=== PATIENT | male | born 1960 | race Caucasian/White ===

== ENCOUNTER 2020-07-12 10:50 | Day surgery (SDC) | payer OTHER ==
[~2020-07-12] VITALS: Ht 172.7 cm; Wt 102.3 kg
--- NOTE | ~2020-07-12 | HEMODYNAMI ---
PATIENT:HUSSEIN FRAIRE MEDICAL RECORD: [id number] : 56 LOCATION:[facility] ADMISSION DATE: 07/12/20 Generatedon:114:26 Patient name: HUSSEIN FRAIRE Patient #: [id number] SSN: [id number] : 1960 Date of study: 07/12/2020 Page: Of Hemodynamic Procedure Report Patient Data Patient Demographics Procedure consent was obtained First Name: HUSSEIN Gender: Male Last Name: JUNO : 1960 Patient #: [id number] Age: 59 year(s) Race: Unknown SSN: [id number] Additional ID: [id number] Contact details [address]: [address] [place] [address] State: [place] City: [place] Zip code: [address] Past Medical History Allergies: No known allergies Admission Admission Data Admission Date: 07/12/2020 Admission Time: 10:50 Arrival Date: 07/12/2020 Arrival Time: 0:00 Admit Source: Other Insurance Payor: Medicare [facility] #: [id number] Height (in.): 67.72 BSA: 2.14 (m2) Height (cm.): 172 BMI: 34.48 (kg/m2) Weight (lbs.): 224.87 Weight (kg.): 102 Lab Results Lab Result Date: 07/12/2020 Lab Result Time: 0:00 Biochemistry Name Units Result Min Max Troponin I ng/ml 72 --(----)-* 0 0.06 Procedure Procedure Types Cath Procedure Diagnostic Procedure LHC LHC w/Coronaries w/Grafts Sedation Charges Moderate Sedation 10-24 minutes Moderate Sedation 40-54 minutes PCI Procedure Coronary Stent Coronary Stent Initial Hemochron ACT Test Procedure Description Procedure Date Procedure Date: 07/12/2020 Procedure Start Time: 13:40 Procedure End Time: 14:23 Procedure Staff Name Function Elton Sotelo MD Performing Physician Yaneth Tobin RT Monitor Phillip Keane RN Nurse Kimberly Eric RT Scrub Indication Abnormal stress perfusion study Procedure Data Cath Procedure Fluoroscopy Diagnostic fluoroscopy Total fluoroscopy Time: time: 12.7 min 12.7 min Diagnostic fluoroscopy Total fluoroscopy dose: dose: 1862 mGy 1862 mGy Contrast Material Contrast Material Type Amount (ml) Isovue 300 202 Entry Location Entry Primary Successful Side Size Upsize Upsize Entry Closure Succes sful Closure Location (Fr) 1 (Fr) 2 (Fr) Remarks Device Remarks Femoral Right 5 Fr 6 Fr artery Short Estimated blood loss: 10 ml Diagnostic catheters Device Type Used For End Catheter Placement MULTIPACK JL 4.0 5Fr Procedure catheter DIAGNOSTIC AR MOD 5Fr Procedure Catheter ([id number]) DIAGNOSTIC AR2 MOD 5 Fr Procedure catheter ([id number]) DIAGNOSTIC IM 5Fr catheter (913300T) DIAGNOSTIC IMT 5Fr Procedure Catheter ([id number]) MULTIPACK Pigtail 5 Fr Ventriculography catheter Procedure Complications No complications Procedure Medications Medication Administration Route Dosage 0.9% NaCl I.V. 100 ml/hr Oxygen etCO2 Nasal cannula 2 l/min Heparin Flush Bag added to field 2 bags (1000units/500ml NS) Lidocaine 2% added to field 20 Versed I.V. 2 mg Fentanyl I.V. 100 mcg Versed I.V. 2 mg Versed I.V. 1 mg Heparin Bolus I.V. 21137 units Versed I.V. 1 mg Nitroglycerin IC/IA I.C. 100 mcg Plavix P.O. 600 mg Hemodynamics Rest BSA: 2.14 (m2) O2 Consumption: Estimated: 240.9 (ml/min) O2 Consumption indexed: Estimated:112.57 (ml/min/m) Heart Rate: 57 (bpm) Pressure Samples Time Site Value (mmHg) Purpose Heart Use Rate(bpm) 13:56 LV 126/-12,11 Snapshot 64 13:57 AO 112/56(81) Pullback 67 13:57 LV 133/-7,7 Pullback 67 Gradients Valve Time Site 1 Site 2 Mean SEP/DFP Peak To Heart Use (mmHg) (sec/min) Peak Rate (mmHg) (bpm) Aortic 13:57 LV AO 17 19 21 67 133/-7,7 112/56(81) Calculations Valve P-P Mean Valve Index Valve Source Name Gradient Area Flow (cm2) Aortic 21 17 21 17 Snapshots Pre Cath Intra NCS Post Cath Vital Signs Time Heart Resp SPO2 etCO2 NIBP (mmHg) Rhythm Pain Sedation Rate (ipm) (%) (mmHg) Status Level (bpm) 13:17:53 54 23 100 33.9 169/87(145) NSR 0 (11) 10(A) , No pain 13:22:18 54 12 100 31.6 163/80(143) NSR 0 (11) 10(A) , No pain 13:26:42 53 19 99 33.8 155/82(123) NSR 0 (11) 10(A) , No pain 13:31:02 54 21 99 31.6 148/82(127) NSR 0 (11) 10(A) , No pain 13:35:20 52 18 98 34.6 154/82(123) NSR 0 (11) 10(A) , No pain 13:40:25 55 18 98 36.1 139/80(111) NSR 0 (11) 10(A) , No pain 13:44:39 64 21 96 12.7 141/84(111) NSR 0 (11) 10(A) , No pain 13:48:57 59 17 98 30.8 141/74(116) NSR 0 (11) 10(A) , No pain 13:53:15 62 18 97 17.3 152/78(112) NSR 0 (11) 10(A) , No pain 13:57:39 58 15 98 32.3 133/74(108) NSR 0 (11) 10(A) , No pain 14:01:55 62 17 98 27 127/73(99) NSR 0 (11) 10(A) , No pain 14:06:11 64 15 98 30.1 128/66(97) NSR 0 (11) 10(A) , No pain 14:10:25 64 20 97 29.3 134/78(113) NSR 0 (11) 10(A) , No pain 14:14:39 63 17 97 21.8 149/83(116) NSR 0 (11) 10(A) , No pain 14:18:57 64 14 98 25.5 131/78(111) NSR 0 (11) 10(A) , No pain 14:23:11 59 11 98 26.3 136/79(112) NSR 0 (11) 10(A) , No pain Medications Time Medication Route Dose Verified Delivered Reason Note s Effectiveness by by 13:17:04 0.9% NaCl I.V. 100 Phillip Phillip for low 02 sats ml/hr Diya Keane RN RN 13:17:18 Oxygen etCO2 2 Phillip Phillip for low 02 sats Nasal l/min Diya Keane cannula RN RN 13:17:34 Heparin Flush added 2 bags Phillip Phillip used for Bag to Diya Keane procedure (1000units/500ml field RN RN NS) 13:17:45 Lidocaine 2% added 20ml Phillip Phillip for local to vial Diya Keane anesthetic field RN RN 13:39:55 Versed I.V. 2 mg Phillip Phillip for sedation Diya Keane RN RN 13:40:04 Fentanyl I.V. 100 Phillip Phillip for sedation mcg Diya Keane RN RN 13:41:26 Versed I.V. 2 mg Phillip Phillip for sedation Diya Keane RN RN 13:56:43 Versed I.V. 1 mg Phillip Phillip for sedation Diya Keane RN RN 14:02:26 Heparin Bolus I.V. 10,000 Phillip Phililp for units Diya Keane anticoagulation RN RN 14:10:18 Versed I.V. 1 mg Phillip Phillip for sedation Diya Keane RN RN 14:15:53 Nitroglycerin I.C. 100 Phillip Elton for IC/IA mcg Diya Sotelo MD vasodilation RN 14:22:52 Plavix P.O. 600 mg Phillip Phillip for Diya Keane antiplatelet RN RN therapy Procedure Log Time Note 13:06:10 Arrival Date: 07/12/2020 12:00:00 AM 13:06:27 Admit Source: Other 13:06:30 Insurance Payor : Medicare 13:07:46 Patient Height : 67.72 inches 13:07:49 Patient Weight : 224.87 lbs 13:08:02 Lab Result : Troponin T 72 ng/ml 13:08:08 Procedure type changed to Cath procedure, Diagnostic procedure, LHC, LHC w/Coronaries w/Grafts, Sedation Charges, Moderate Sedation 10-24 minutes, Moderate Sedation 40-54 minutes, PCI procedure, Coronary Stent, Coronary Stent Initial, Hemochron ACT Test 13:08:10 Diagnostic Cath Status : Elective 13:08:39 Indication : Abnormal stress perfusion study 13:08:48 Procedure Status Elective Heart Cath (OP). 13:08:51 Phillip Keane RN sent for patient. Start room use. 13:08:52 Time tracking: Regular hours (M-F 7:00 - 5:00) 13:08:57 Plan of Care:Hemodynamics will remain stable., Cardiac rhythm will remain stable., Comfort level will be maintained., Respiratory function will remain adequate., Patient/ family verbilizes understanding of procedure., Procedure tolerated without complication., Recovers from procedure without complications.. 13:10:46 Patient received from Pre/Post Procedure Room to CCL 2 Alert and oriented. Tansferred to table in Supine position. 13:11:03 Signed procedure consent form obtained from patient. 13:11:04 Warm blankets applied, and suzanne hugger turned on for patient comfort. 13:11:05 Correct patient and procedure confirmed by team. 13:11:07 ECG and BP/O2 sat monitors applied to patient. 13:11:31 H&P Date Dictated: 07/12/2020 Within 30 days and on chart.. 13:11:35 Pre-procedure instructions explained to patient. 13:11:39 Family unavailable. 13:11:41 Patient NPO since Midnight. 13:11:48 Patient allergic to No known allergies 13:11:52 Is the patient allergic to Iodine/contrast media? No. 13:11:53 Was the patient premedicated? Yes 13:13:06 Lab results completed and on chart. 13:13:23 Stress Test: yes; abnormal lat/infer 13:16:37 Baseline sample Acquired. 13:16:37 Vital chart was started 13:16:43 Rhythm: sinus rhythm 13:16:46 Full Disclosure recording started 13:16:53 Is patient on blood thinner?No 13:16:55 Patient diabetic? No. 13:16:59 Snore? Yes 13:17:00 Sleep apnea? Yes 13:17:04 0.9% NaCl 100 ml/hr I.V. was administered by Phillip Keane RN; for low 02 sats; Verbal order read back and verified. 13:17:08 Dentures? No ? 13:17:14 Patient pain scale 0/10 ?. 13:17:18 Oxygen 2 l/min etCO2 Nasal cannula was administered by Phillip Keane RN; for low 02 sats; Verbal order read back and verified. 13:17:26 IV patent on arrival in left forearm with 0.9% NaCl at [facility]. 13:17:29 Alarms reviewed by R. N. 13:17:30 Sharps counted by scrub and verified by R.N. 13:17:31 Physician paged 13:17:34 Heparin Flush Bag (1000units/500ml NS) 2 bags added to field was administered by Phillip Keane RN; used for procedure; Verbal order read back and verified. 13:17:45 Lidocaine 2% 20ml vial added to field was administered by Phillip Keane RN; for local anesthetic; Verbal order read back and verified. 13:20:57 Use device set Femoral Dx 13:20:59 ACIST Syringe (18958) opened to sterile field. 13:21:00 Bag Decanter (2002S) opened to sterile field. 13:21:00 Medline Cath Pack ([id number]) opened to sterile field. 13:21:02 ACIST Hand Control (13535) opened to sterile field. 13:21:02 ACIST Manifold (90725) opened to sterile field. 13:21:03 DIAGNOSTIC Multipack 5Fr catheter set (DM7625) opened to sterile field. 13:21:04 Tegaderm 4 x 4 (1626W) opened to sterile field. 13:21:06 SHEATH 5FR Pocola (AZO402) opened to sterile field. 13:21:07 EMERALD Guide Wire (909-900) opened to sterile field. 13:27:56 Right groin area was prepped with chlora-prep and draped in sterile fashion 13:35:11 Zero performed for pressure channel P1 13:39:01 Physician arrived 13:39:01 --------ALL STOP TIME OUT------ 13:39:02 Final Timeout: patient, procedure, and site verified with staff and physician. All members of the team are in agreement. 13:39:04 Right groin site verified by team. 13:39:09 Fire Safety Assessment: A--An alcohol-based skin anteseptic being used preoperatively., C--Open oxygen or nitrous oxide is being used., D--An ESU, laser, or fiber-optic light is being used. 13:39:15 Physical assessment completed. ASA score P 3 - A patient with severe systemic disease as per Elton Sotelo MD. 13:39:21 2) 60-89 Mildly reduced kidney function, and other findings (as for stage 1) point to kidney disease. 13:39:25 Maximum allowable contrast dose (3.7 X eGFR X 0.75)199 ml. 13:39:30 Sedation plan: IV Moderate Sedation Medication:Versed, Fentanyl 13:39:42 Procedure started. 13:39:55 Versed 2 mg I.V. was administered by Phillip Keane RN; for sedation; Verbal order read back and verified. 13:40:04 Fentanyl 100 mcg I.V. was administered by Phillip Keane RN; for sedation; Verbal order read back and verified. 13:40:23 Local anesthetic to right femoral artery with Lidocaine 2% by Elton Sotelo MD.INITIAL ACCESS ONLY 13:40:32 A 5 Fr sheath was inserted into the Right Femoral artery 13:41:26 Versed 2 mg I.V. was administered by Phillip Keane RN; for sedation; Verbal order read back and verified. 13:42:04 A MULTIPACK JL 4.0 5Fr catheter was advanced over the wire and used for Procedure. 13:42:06 LCA angiography performed. 13:43:09 Catheter removed. 13:43:16 A DIAGNOSTIC AR MOD 5Fr Catheter ([id number]) was advanced over the wire and used for Procedure. 13:44:40 RCA angiography performed. 13:46:40 Catheter removed. 13:46:57 A DIAGNOSTIC AR2 MOD 5 Fr catheter (504150E) was advanced over the wire and used for Procedure. 13:47:05 SVG to RCA angiography performed. 13:47:40 SVG to Diag angiography performed. 13:49:43 Catheter removed. 13:53:24 A DIAGNOSTIC IM 5Fr catheter (141782S) was advanced over the wire and used for .unable to cannulate 13:53:26 Catheter removed. 13:53:41 A DIAGNOSTIC IMT 5Fr Catheter ([id number]) was advanced over the wire and used for Procedure. 13:54:19 DONATO angiography performed. 13:54:48 Catheter removed. 13:55:47 A MULTIPACK Pigtail 5 Fr catheter was advanced over the wire and used for Ventriculography. 13:56:12 LV gram done using WRIGHT 13:56:43 Versed 1 mg I.V. was administered by Phillip Keane RN; for sedation; Verbal order read back and verified. 13:56:58 EF : 60 % 13:57:24 Catheter removed. 13:58:17 Sheath upsized to a 6 Fr Short. 13:58:59 SHEATH 6FR Pocola (TFO341) opened to sterile field. 13:58:59 INFLATOR Merit BasixCompak (XD2639) opened to sterile field. 13:59:02 GUIDE 6FR EBU 3.5 catheter ([id number]) opened to sterile field. 13:59:37 Proceeding to intervention. 14:00:44 TUBING High Pressure Extension Tubing (Deepak) (OV3010X) opened to sterile field. 14:01:39 Asahi Minamo 300cm wire opened to sterile field. 14:01:51 6 Fr ebu3.5 guide catheter was inserted over the wire 14:02:26 Heparin Bolus 10,000 units I.V. was administered by Phillip Keane RN; for anticoagulation; Verbal order read back and verified. 14:02:38 virginie wire advanced. 14:05:29 Inflate balloon Inflation number: 1 A EMERGE OTW 2.5 x 15 balloon ([id number]) was prepped and advanced across the Prox CX , then inflated to 12 KOTA for 0:31 (min:sec) . 14:08:01 Inflation number: 2 The EMERGE OTW 2.5 x 15 balloon ([id number]) was reinflated across the Prox CX , to 8 KOTA for 0:24 (min:sec) . 14:09:04 Balloon removed over the wire. 14:10:18 Versed 1 mg I.V. was administered by Phillip Keane RN; for sedation; Verbal order read back and verified. 14:12:39 Place stent Inflation Number: 1 A LETICIA OTW 2.5 x 18 stent ([id number]) was prepped and advanced across the Prox CX1 80. The stent was deployed at 10 KOTA for 0:20 (min:sec) . 14:13:30 Wire removed. 14:15:53 Nitroglycerin IC/IA 100 mcg I.C. was administered by Elton Sotelo MD; for vasodilation; Verbal order read back and verified. 14:17:03 Guide catheter removed. 14:17:33 EXOSEAL 6Fr (EX600) opened to sterile field. 14:18:32 Procedure ended.(Physican Out) 14:19:02 Fluoroscopy time 12.70 minutes. 14:19:08 Fluoroscopy dose: 1862 mGy 14:19:08 Flurop Dose total: 1862 14:19: Dose Area Product 179341 mGy/cm. 14:19:22 Contrast amount:Isovue 300 202ml. 14:19:25 Maximum allowable dose exceeded? Yes. 14:19: Sharps counted by scrub and verified by R.N. 14:19:31 Insertion/operative site no bleeding no hematoma. 14:19:37 Post-op/insertion site Right Femoral artery dressed using a 4 x 4 and Tegaderm. 14:19:40 Post right femoral artery:stable 14:19:45 Post Procedure Pulses reassessed and unchanged 14:19:52 Post-procedure physical assessment completed. ASA score P 3 - A patient with severe systemic disease as per Elton Sotelo MD. 14:19:58 Post procedure rhythm: unchanged. 14:20:01 Estimated blood loss: 10 ml 14:20:02 Post procedure instruction explained to patient.Patient verbalizes understanding. 14:21:03 Procedure and supply charges have been captured, reviewed, submitted and are correct. 14:22:52 Plavix 600 mg P.O. was administered by Phillip Keane RN; for antiplatelet therapy; Verbal order read back and verified. 14:22:57 Procedure Complication : No complications 14:23:06 Vital chart was stopped 14:23:10 [facility] Findings: MVD- PCI performed (see procedure note) 14:23:13 See physician's report for complete and final results. 14:23:20 Report given to Pre/Post Procedure Room. 14:23:23 Patient transfered to Pre/Post Procedure Room with Stretcher. 14:23:26 Procedure ended. 14:23:26 Full Disclosure recording stopped 14::33 End room use (Document Last) 14:25:57 ACT drawn and resulted at >400 high out of range seconds. (normal therapeutic range 180-240 seconds). Intervention Summary Intervention Notes Time ActionType Lesion and Equipment Action# Pressure Duration Attributes Used 14:05:29 Inflate Prox CX EMERGE OTW 1 12 00:31 balloon 2.5 x 15 balloon ([id number]) 14:08:01 Reinflate Prox CX EMERGE OTW 2 8 00:24 balloon 2.5 x 15 balloon ([id number]) 14:12:39 Place stent Prox CX1 LETICIA OTW 2.5 1 10 00:21 x 18 stent ([id number]) Device Usage Item Name Manufacture Quantity Catalog Number Hospital Part Current M inimal Lot# / Charge Number Stock Stock Serial# Code ACIST Syringe Acist 1 73745 481541 534176 452184 2 0 (92875) Medical Systems Inc Bag Decanter Microtek 1 478370 38078 710180 5 () Medical Inc. Medline Cath Medline 1 [id number] 813134 88827 195334 5 Pack ([id number]) ACIST Hand Acist 1 63866 461100 013267 007372 5 Control Medical (23251) Systems Inc ACIST Acist 1 14202 631645 416592 857971 5 Manifold Medical (16833) Systems Inc DIAGNOSTIC Cardinal 1 NE7977 132277 60988 093718 3 0 Multipack 5Fr Health catheter set (RI1430) Tegaderm 4 x 3M 1 1626W 854781 879757 848343 5 4 (1626W) SHEATH 5FR Terumo 1 IMN132 954203 931105 414339 5 Pocola (VDO078) EMERALD Guide Cardinal 1 502-455 522403 780549 467346 5 Wire Health (502-455) MULTIPACK JL Cardinal 1 597423 5 4.0 5Fr Health catheter DIAGNOSTIC AR Cardinal 1 187678H 030259 151221 303949 1 5 MOD 5Fr Health Catheter (409101H) DIAGNOSTIC Cardinal 1 770281N 899657 523668 293966 2 0 AR2 MOD 5 Fr Health catheter (096392N) DIAGNOSTIC IM Cardinal 1 444474U 703320 368576 811375 5 5Fr catheter Health (691465V) DIAGNOSTIC [place] 1 [id number] 665898 164356 74986 5 IMT 5Fr Scientific Catheter ([id number]) MULTIPACK Cardinal 1 442088 5 Pigtail 5 Fr Health catheter SHEATH 6FR Terumo 1 QQT506 849896 658982 644934 4 0 Pocola (CIC064) INFLATOR Merit 1 DE8225 259575 002136 749968 1 5 Merit Medical BasixCompak (ZP2347) GUIDE 6FR EBU Medtronic 1 [id number] 967456 36683 333259 3 3.5 catheter ([id number]) TUBING High Merit 1 [id number] 542698 82872 949757 1 0 Pressure Medical Extension Tubing (Sotelo) (TJ6916A) Asahi Minamo Asahi Intecc 1 [id number] 777594 8908714 944242 0 300cm wire EMERGE OTW [place] 1 [id number] 659133 621965 390401 5 [id number] 2.5 x 15 Scientific balloon ([id number]) LETICIA OTW 2.5 Medtronic 1 [id number] 991339 79089 514479 5 [id number] x 18 stent ([id number]) EXOSEAL 6Fr Cardinal 1 EX600 111846 120748 767028 1 0 (EX600) Health Signature Audit [place] Stage Time Signature Unsigned Intra-Procedure 07/12/2020 Yaneth Tobin 2:24:53 PM RT(R) Intra-Procedure 07/12/2020 Phillip 2:25:56 PM Diya GAMBOA Intra-Procedure 07/12/2020 Elton Sotelo MD 2:26:46 PM Signatures Performing Physician : Signature : Elton Sotelo MD Date : Time : Monitor : Yaneth Tobin Signature : RT Date : Time : Nurse : Phillip Keane Signature : RN Date : Time : [facility] [address] [place] [address]
[2020-07-12] MEDS ORDERED: METOPROLOL TART50 MG PO (11:05)
[2020-07-12] MEDS ORDERED: MOBIC7.5 MG PO (11:05)
[2020-07-12] MEDS ORDERED: GABAPENTIN300 MG PO (11:06)
[2020-07-12] MEDS ORDERED: NITROSTAT0.4 MG SL (11:06)
[2020-07-12 11:31] VITALS: BP 176/92; Ht 172.7 cm; Wt 102.3 kg
[2020-07-12 11:41] LABS: BASOPHILS 0.5 % (0-2); EOSINOPHILS 2.2 % (0-7); HEMATOCRIT 45.4 % (42.0-54.0); HEMOGLOBIN 15.8 g/dL (13.5-17.5); IMMATURE GRANULOCYTES 0.2 % (0-5); LYMPHOCYTE ABS# 2.41 10x3/uL (1.32-3.57); LYMPHOCYTES 41.6 % (15-50); MCH 32.2 pg (26.0-34.0); MCHC 34.8 g/dL (31.0-37.0); MCV 92.5 fL (80.0-100.0); MEAN PLATELET VOLUME 9.4 fL (7.4-10.4); MONOCYTES 10.2 % (2-11); NEUTROPHIL ABS# 2.62 10x3/uL (1.78-5.38); NEUTROPHILS 45.3 % (40-80); PLATELET COUNT 229 10x3/uL (130-400); RBC 4.91 10x6/uL (4.20-6.10); RDW 12.5 % (11.5-14.5); WBC 5.8 10x3/uL (4.8-10.8)
[2020-07-12 12:00] LABS: ANION GAP 13.1 mmol/L (8-16); CALCIUM 8.6 mg/dL (8.5-10.1); CARBON DIOXIDE 25.5 mmol/L (21.0-32.0); CHOL - HDL RATIO 7.8 ratio (2.3-4.9); CREATININE - SERUM 1.1 mg/dL (0.6-1.3); LDL-HDL RATIO 5.6 ratio (1.5-3.5); POTASSIUM - SERUM 3.6 mmol/L (3.5-5.1)
--- NOTE | 2020-07-12 14:45 | NUR ---
ARRIVES TO ROOM 5 , AAOX3, PLACED ON MONITORS ALARMS ON , IV INFUSING PER ORDERS, SEE SHUTTLELESS LOOM WEAVER, CALL LIGHT WITH IN REACH, POSITIONED FOR COMFORT, PT EDUCATED ON TIME FRAME TO LIE FLAT AND HEAD ON PILLOW, DENIES PAIN OR NEEDS AT PRESENT.
--- NOTE | 2020-07-12 15:15 | NUR ---
RIGHT GROIN STABLE , NO OOZING OR BLEEDING , NO PALPABLE HEMATOMA, EXTREMITY WARM AND PEDAL PULSE PALPABLE CAP REFILL WNL, IV INFUSING PER ORDERS, SIPS OF SPRITE GIVEN, DENIES PAIN OR NEEDS, CM SHOWS SB WITH NO ECTOPY, CALL LIGHT WITHIN REACH
[2020-07-12] MEDS ORDERED: PLAVIX75 MG PO (15:20)
[2020-07-12] MEDS ORDERED: BAYER CHEWABLE81 MG PO (15:21)
--- NOTE | 2020-07-12 15:30 | NUR ---
RIGHT GROIN STABLE NO OOZING OR BLEEDING NOTED, EXTREMITY WARM AND DRY, PEDAL PULSE PALPABLE, DENIES PAIN OR NEEDS, IV INFUSING PER ORDERS, CALL LIGHT WITHIN REACH, CM SHOWS SB NO ECTOPY, DENIES BATHROOM NEEDS AT PRESENT
--- NOTE | 2020-07-12 15:45 | NUR ---
RESTING QUIETLY, DENIES PAIN OR NEEDS, CM SHOW SB, VSS, SATS 97% 2L,INFUSING LEFT PIV PER ORDERS , RIGHT GROIN SOFT WITH NO BLEEDING OR OOZING , RIGHT EXTREMITY WARM AND DRY , RIGHT PEDAL PULSE PALPABLE CAP REFILL WNL, CALL LIGHT WITH IN REACH, SIPS OF SPRITE OFFERED.
--- NOTE | 2020-07-12 16:00 | NUR ---
EYES CLOSED AROUSES EASILY, DENIES PAIN OR NEEDS, AERIAL GUNNER SHOW SB, RIGHT GROIN SOFT WITH OUT BLEEDING OR OOZING, EXTREMITY WARM , PEDAL PULSE PALPALBE, CAP REFILL WNL, DENIES BATHROOM NEEDS, IV INFUSING PER ORDERS. CALL LIGHT WITHIN REACH
--- NOTE | 2020-07-12 16:30 | NUR ---
RESTING QUIETLY, AROUSES EASILY, CM SB, VSS, RIGHT GROIN SOFT NO OOZING OR BLEEDING , NO PALPABLE HEMATOMA , PEDAL PULSE PALPABLE, VOIDS 600CC CLEAR YELLOW URINE, IV INFUSING PER ORDERS, DENIES PAIN OR NEEDS, CALL LIGHT WITH IN REACH, SIP OF SOFT DRINK OFFERED, UPDATED ON TIME AND THAT SPOUSE HAS BEEN NOTIFIED BY THIS NURSE OF PT STATUS AND TIME OF DISCHARGE
--- NOTE | 2020-07-12 17:00 | NUR ---
EYES CLOSED AROUSES EASILY, NO NEEDS, SB, VSS, RIGHT GROIN SOFT WITHOUT OOZING OR BLEEDING NO PALPABLE HEMATOMA, EXTREMITY WARM AND MOVES DIGITS, PEDAL PULSE PALPALBE, DENIES PAIN OR NEEDS, CALL LIGHT WITHIN REACH , IV INFUSING PER ORDERS, REMAINS SUPINE WITH HEAD ON PILLOW.
--- NOTE | 2020-07-12 17:20 | NUR ---
PT IS PLACED IN SEMI FOWLERS POSITION , VSS, SB, RIGHT GROIN REMAINS SOFT WITH NO OOZING OR BLEEDING NOTED, RIGHT EXTREMITY WARM AND MOVES ALL DIGITS PEDAL PULSE PALPALBE, PT DENIES PAIN OR NEEDS, CALL LIGHT WITHIN REACH, SANDWICH BOX AND DRINK GIVEN, PT QUESTIONS AND CONCERNS ADDRESSED. DISCHARGE TEACHING STARTED
--- NOTE | 2020-07-12 18:01 | NUR ---
DISCHARGE TEACHING WITH PT , PT VERBALIZED UNDERSTANDING REGARDING INSTRUCTIONS, QUESTIONS AND CONCERNS ADDRESSED, PT CONSUMED 100% OF SANDWICH BOX, PT DENIES PAIN OR NEEDS , VSS, SB, RIGHT GROIN SOFT WITHOUT OOZING OR HEMATOMA, PEDAL PULSE PALPABLE. CALL LIGHT WITHIN REACH, SIDERAILS UP, IV INFUSING PER ORDERS
--- NOTE | 2020-07-12 18:30 | NUR ---
PT PIV REMOVED CATHETER INTACT, PT RIGHT GROIN SOFT WITH NO OOZING OR BLEEDING NOTED, NO PALPABLE HEMATOMA, PEDAL PULSE PALPABLE, CAP REFILL WNL, PT DENIES PAIN OR NEEDS, PT DRESSED AND AMBULATES TO BATHROOM VOIDS WITHOUT DIFFICULTY, DISCHARGE INSTRUCTIONS REVIEWED WITH PT AND QUESTIONS ADDRESSED PT VERBALIZED UNDERSTANDING REGARDING ALL INSTRUCTIONS, PT TAKEN TO PRIVATE VEHICLE VIA WHEELCHAIR
== END 2020-07-12 18:30 | disposition home or self-care (01) ==
LOC: D.CATH 10:50
PROVIDERS: ATTEND Internal Medicine Cardiovascular Disease
DX: I25.118 Atherosclerotic heart disease of native coronary artery with other forms of angina pectoris (principal); R94.39 Abnormal result of other cardiovascular function study; I10 Essential (primary) hypertension
CPT/HCPCS: 93459; C9600

== ENCOUNTER → 2020-10-30 07:49 | Outpatient (CLI) | payer OTHER ==
[2020-07-12 11:31] VITALS: BMI 34.2
[~2020-10-30 07:49] MED LIST: BAYER CHEWABLE81 MG PO; GABAPENTIN300 MG PO; METOPROLOL TART50 MG PO; MOBIC7.5 MG PO; NITROSTAT0.4 MG SL; PLAVIX75 MG PO
== END | disposition home or self-care (01) ==
LOC: D.CT 07:49
PROVIDERS: ATTEND Internal Medicine Gastroenterology
DX: R10.32 Left lower quadrant pain (principal); R12 Heartburn